=== PATIENT | female | born 2000 | race Caucasian/White ===

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

== ENCOUNTER → 2022-09-09 | Outpatient (CLI) | payer BC ==
[2022-09-09 14:21] LABS: Basophils # (A) 0.04 X 10*3/uL (0.00-0.10); Basophils % (A) 0.5 %; Eosinophils # (A) 0.08 X 10*3/uL (0.04-0.35); Eosinophils % (A) 1.1 %; HCT 43.3 % (37.2-46.3); HGB 13.8 d/dL (12.0-15.0); Lymphocytes # (A) 2.47 X 10*3/uL (0.90-5.00); Lymphocytes % (A) 33.1 %; MCH 28.8 pg (27.0-32.0); MCHC 31.9 d/dL (32.0-37.0); MCV 90.2 FL (80.0-97.0); Mean Platelet Volume 10.5 FL (9.5-12.2); Monocytes # (A) 0.47 X 10*3/uL (0.20-1.00); Monocytes % (A) 6.3 %; NRBC Per 100 WBC 0 X 10*3/uL (0.00-0.01); Neutrophils # (A) 4.39 X 10*3/uL (1.80-7.70); Neutrophils % (A) 58.7 %; Platelet Count 300 X 10*3/uL (140-440); RDW 13.2 % (11.5-14.5); WBC 7.47 X 10*3/uL (4.50-10.00)
[2022-09-09 15:35] LABS: Erythrocyte Sedimentation Rate 4 mm/Hr (0-20)
[2022-09-09 15:42] LABS: ALT 19 U/L (8-44); AST 23 U/L (13-35); Albumin 5.1 d/dL (3.8-4.9); Albumin/Globulin Ratio 1.96 Ratio (1.60-3.17); Alkaline Phosphatase 88 U/L (41-126); BUN/Creat Ratio 9.88 Ratio (12.00-20.00); Blood Urea Nitrogen 7.9 mg/dL (9.0-27.0); Calcium 10.3 mg/dL (8.7-10.3); Carbon Dioxide 23.9 mmol/L (21.6-31.8); Chloride 103 mmol/L (96-109); Chol/HDL Ratio 2.11 Ratio; Globulin 2.6 d/dL (1.6-3.3); Glucose 85 mg/dL (70-110); Iron 76 UG/DL (50-170); LDL Cholesterol,Calculated 71.6 mg/dL (0.0-131.0); Potassium 4.2 mmol/L (3.5-5.5); Sodium 139 mmol/L (135-145); T4, Free (Free Thyroxine) 1.47 ng/dL (0.83-1.43); Total Bilirubin 0.5 mg/dL (0.3-1.2); Total Iron Binding Capacity 543 UG/DL (228-460); Total Protein 7.7 d/dL (6.2-8.2)
== END | disposition home or self-care (01) ==
LOC: LABWHC1 08:06
PROVIDERS: ATTEND Student in an Organized Health Care Education/Training Program
DX: Z00.00 Encounter for general adult medical examination without abnormal findings (principal); R53.83 Other fatigue; R42 Dizziness and giddiness
CPT/HCPCS: 36415; 80053; 80061; 82306; 82607; 82728; 82746; 83036; 83540; 83550; 84439; 84443; 85025; 85652; 86038

== ENCOUNTER → 2022-09-16 | Outpatient (CLI) | payer BC ==
--- NOTE | 2022-09-16 11:19 | CA ---
Transthoracic Echo Report Name: Debra Carter Age: 22 Gender: F : 2000 Exam Date: 09/16/2022 10:16 Exam Location: [facility] Ht (in): 62 Wt (lb): 120 Ordering Physician: Stephanie Goins DO Attending/Referring Phys: Jarrod Marquez DO [employer] Brittanie Mulligan, [id number] Procedure CPT: Indications: $42 dizziness Cardiac Hx: Technical Quality: Good Contrast 1: Total Dose (mL): Contrast 2: Total Dose (mL): MEASUREMENTS (Male / Female) Normal Values 2D ECHO LV Diastolic Diameter PLAX 4.1 cm 4.2 - 5.9 / 3.9 - 5.3 cm LV Systolic Diameter PLAX 2.7 cm IVS Diastolic Thickness 0.8 cm 0.6 - 1.0 / 0.6 - 0.9 cm LVPW Diastolic Thickness 0.8 cm 0.6 - 1.0 / 0.6 - 0.9 cm LV Relative Wall Thickness 0.4 RV Internal Dim ED PLAX 2.9 cm LA Systolic Diameter LX 2.8 cm 3.0 - 4.0 / 2.7 - 3.8 cm LV Diastolic Volume MOD 4C 90.3 cm??? LV Systolic Volume MOD 4C 36.8 cm??? LV Ejection Fraction MOD 4C 59.3 % LV Cardiac Index MOD 4C 2076.4 cm???/min???m??? LV Diastolic Length 4C 7.5 cm LV Systolic Length 4C 6.0 cm LV Diastolic Volume MOD 2C 84.8 cm??? LV Systolic Volume MOD 2C 36.9 cm??? LV Ejection Fraction MOD 2C 56.5 % LV Cardiac Index MOD 2C 1855.8 cm???/min???m??? LV Diastolic Length 2C 7.2 cm LV Systolic Length 2C 5.8 cm M-MODE Aortic Root Diameter MM 2.6 cm MV E Point Septal Separation 0.2 cm AV Cusp Separation MM 2.1 cm DOPPLER AV Peak Velocity 121.5 cm/s AV Peak Gradient 5.9 mmHg Mitral E Point Velocity 78.8 cm/s Mitral A Point Velocity 42.7 cm/s Mitral E to A Ratio 1.8 MV Deceleration Time 491.8 ms MV E' Velocity 16.3 cm/s Mitral E to MV E' Ratio 4.8 FINDINGS Left Ventricle Left ventricular ejection fraction is estimated at 60-65 %. Left ventricular cavity size normal. Left ventricular wall thickness normal. Right Ventricle Normal right ventricular size. Unable to estimate the right ventricular systolic pressure. Right Atrium Normal right atrial size. Left Atrium Normal left atrial size. Mitral Valve Structurally normal mitral valve. No mitral stenosis, or prolapse. Trace mitral regurgitation Aortic Valve Trileaflet aortic valve. No aortic valve stenosis or regurgitation. Tricuspid Valve Structurally normal tricuspid valve. No tricuspid stenosis, regurgitation or prolapse. Pulmonic Valve Structurally normal pulmonic valve. No pulmonic regurgitation. Pericardium Normal pericardium. No pericardial effusion. Aorta Normal size aortic root and proximal ascending aorta. CONCLUSIONS 1. Normal left ventricle size and systolic function 2. Trace tricuspid regurgitation Previewed by: Dr. Scott Roberts MD (Electronically Signed) Final Date: 16 September 2022 11:18
== END | disposition home or self-care (01) ==
LOC: RADECHMAIN 09:48
PROVIDERS: ATTEND Student in an Organized Health Care Education/Training Program
DX: I07.1 Rheumatic tricuspid insufficiency (principal); R42 Dizziness and giddiness
CPT/HCPCS: 93306

== ENCOUNTER 2022-12-02 08:29 | Day surgery (SDC) | payer BC ==
[~2022-12-02 08:29] MED LIST: SODIUM CHLORIDE 0.9% 1,000 ML IV SCH
[2022-12-02] MEDS ORDERED: SODIUM CHLORIDE 0.9% 1,000 ML IV ONE (08:52)
[2022-12-02 08:57] VITALS: RESP 16; TEMP 98.3
[2022-12-02] MEDS ORDERED: SODIUM CHLORIDE 0.9% 500 ML 500 ML IV ONE (10:05)
[2022-12-02 11:18] VITALS: BP 123/84; PULSE 70
--- NOTE | 2022-12-02 16:16 | P.EPPROC ---
- EP Procedure Note Electrophysiology Procedure Note: Diagnosis Recurrent syncope Twelve-lead EKG shows sinus mechanism normal [place] narrow toes normal ST segments Tilt table test per protocol Baseline heart rate 84 beats and, Baseline blood pressure 111/74 mmHg Patient was tilted upright at an angle of 70 per protocol No significant change in heart rate and blood pressure No symptoms noted She was laid supine at the end of the procedure Impression Normal twelve-lead EKG Normal heart rate and blood pressure response to upright tilting
== END 2022-12-02 11:10 | disposition home or self-care (01) ==
LOC: CATHEP 08:29
PROVIDERS: ATTEND Internal Medicine Clinical Cardiac Electrophysiology
DX: R55 Syncope and collapse (principal)
CPT/HCPCS: 81025; 93660

== ENCOUNTER → 2023-02-11 | Outpatient (CLI) | payer BC ==
[2023-02-11 15:06] LABS: Basophils # (A) 0.02 X 10*3/uL (0.00-0.10); Basophils % (A) 0.4 %; Eosinophils # (A) 0.03 X 10*3/uL (0.04-0.35); Eosinophils % (A) 0.6 %; HCT 43.8 % (37.2-46.3); HGB 14.1 g/dL (12.0-15.0); Lymphocytes # (A) 1.74 X 10*3/uL (0.90-5.00); Lymphocytes % (A) 34.8 %; MCH 28.3 pg (27.0-32.0); MCHC 32.2 g/dL (32.0-37.0); Mean Platelet Volume 9.8 FL (9.5-12.2); Monocytes # (A) 0.33 X 10*3/uL (0.20-1.00); Monocytes % (A) 6.6 %; NRBC Per 100 WBC 0 X 10*3/uL (0.00-0.01); Neutrophils # (A) 2.87 X 10*3/uL (1.80-7.70); Neutrophils % (A) 57.4 %; Platelet Count 267 X 10*3/uL (140-440); RBC 4.98 X 10*6/uL (4.10-5.20); RDW 13.2 % (11.5-14.5)
[2023-02-11 15:44] LABS: % Iron Saturation 24.47 (12.00-45.00); ALT 12 U/L (8-44); AST 12 U/L (13-35); Albumin 4.9 g/dL (3.8-4.9); Albumin/Globulin Ratio 1.81 Ratio (1.60-3.17); Alkaline Phosphatase 87 U/L (41-126); Blood Urea Nitrogen 9.6 mg/dL (9.0-27.0); Calcium 10.4 mg/dL (8.7-10.3); Carbon Dioxide 25.8 mmol/L (21.6-31.8); Chloride 101 mmol/L (96-109); Globulin 2.7 g/dL (1.6-3.3); Glucose 88 mg/dL (70-110); Iron 127 UG/DL (50-170); Potassium 4.4 mmol/L (3.5-5.5); Sodium 138 mmol/L (135-145); T4, Free (Free Thyroxine) 1.09 ng/dL (0.83-1.43); Total Bilirubin 0.7 mg/dL (0.3-1.2); Total Iron Binding Capacity 519 UG/DL (228-460); Total Protein 7.6 g/dL (6.2-8.2)
== END | disposition home or self-care (01) ==
LOC: LABWHC1 11:44
PROVIDERS: ATTEND Student in an Organized Health Care Education/Training Program
DX: E87.8 Other disorders of electrolyte and fluid balance, not elsewhere classified (principal); R20.8 Other disturbances of skin sensation
CPT/HCPCS: 36415; 80053; 83520; 83540; 83550; 83935; 84439; 84443; 84481; 85025; 86376